=== PATIENT | male | born 1950 | race Caucasian/White ===

== ENCOUNTER 2018-04-08 22:45 | Emergency (ER) | payer BC ==
[2018-04-08] MEDS ORDERED: HYDROCODONE/APAP 10/325 TAB ONE (23:13)
--- NOTE | 2018-04-09 01:08 | EDPHYS ---
Physician Documentation [facility] Name: Tim Harris Age: 67 yrs Sex: Male : 1950 Arrival Date: 04/08/2018 Time: 22:46 Bed 30 Private MD: ED Physician Bernard Mendoza HPI: 04/08 23:15 This 67 yrs old Male presents to ER via Wheelchair with complaints of Leg Injury, Fall jmm Injury. 23:15 The patient presents with an injury. The complaints affect the lateral aspect of right jmm thigh. Onset: The symptoms/episode began/occurred acutely, just prior to arrival. Patient states he tripped on a log landing on the sand just prior to arrival complains of pain to the right thigh. Denies other injury. Historical: - Allergies: 22:58 No Known Allergies; fc - Home Meds: 22:58 atorvastatin oral oral 1 tab once daily [Active]; lisinopril Oral once daily [Active]; fc - PMHx: 22:58 Hyperlipidemia; Hypertension; fc - PSHx: 22:58 None; fc - Immunization history:: Last tetanus immunization: up to date. - Social history:: Smoking status: Patient uses tobacco products, smokes one pack cigarettes per day. Patient uses alcohol, QOD. - Ebola Screening: : Patient negative for fever greater than or equal to 101.5 degrees Fahrenheit, and additional compatible Ebola Virus Disease symptoms Patient denies exposure to infectious person Patient denies travel to an Ebola-affected area in the 21 days before illness onset. ROS: 23:15 Constitutional: Negative for fever, chills, and weight loss, Cardiovascular: Negative jmm for chest pain, palpitations, and edema, Respiratory: Negative for shortness of breath, cough, wheezing, and pleuritic chest pain, Abdomen/GI: Negative for abdominal pain, nausea, vomiting, diarrhea, and constipation, Back: Negative for injury and pain. 23:15 MS/extremity: Positive for pain. 23:15 All other systems are negative. Exam: 23:15 Constitutional: This is a well developed, well nourished patient who is awake, alert, jmm and in no acute distress. 23:15 Head/Face: atraumatic. 23:15 Cardiovascular: Rate: normal. 23:15 Respiratory: the patient does not display signs of respiratory distress, Respirations: normal. 23:15 Musculoskeletal/extremity: pain elicited on palpation of the right thigh, no obvious deforimty appreciated. 23:15 Skin: Appearance: Color: normal in color. 23:15 Neuro: Orientation: is normal, Mentation: is normal, Memory: is normal. Vital Signs: 22:59 BP 101 / 71; Pulse 67; Resp 18; Temp 97.4(O); Pulse Ox 95% on R/A; Weight 87.09 kg (R); fc Height 5 ft. 5 in. (165.10 cm) (R); Pain 07/10; 04/09 01:00 BP 126 / 72; Pulse 72; Resp 17; Pulse Ox 96% on R/A; rk2 04/08 22:59 Body Mass Index 31.95 (87.09 kg, 165.10 cm) fc MDM: 04/08 23:14 [facility] 04[facility] 01:03 Data reviewed: vital signs, nurses notes, radiologic studies, plain films. Counseling: [facility] I had a detailed discussion with the patient and/or guardian regarding: the historical points, exam findings, and any diagnostic results supporting the discharge/admit diagnosis, radiology results, the need for outpatient follow up, to return to the emergency department if symptoms worsen or persist or if there are any questions or concerns that arise at home. 04/08 23:14 Order name: [facility] Right XRAY [facility] 04/09 00:53 Order name: Crutches; Complete Time: 01:03 [facility] Administered Medications: 04/08 23:12 Drug: [place] 10 mg-325 mg 1 tabs Route: PO; rk2 04/09 01:04 Follow up: Response: No adverse reaction [facility] Disposition: 05:23 Co-signature as Attending Physician, Bernard Mendoza MD. rn Disposition: 04/09/18 01:07 Discharged to Home. Impression: Muscle strain. - Condition is Stable. - Discharge Instructions: Muscle Strain. - Prescriptions for Ultram 50 mg Oral Tablet - take 1 tablet by ORAL route every 6 hours As needed; 20 tablet. orphenadrine citrate 100 mg Oral Tablet Sustained Release - take 1 tablet by ORAL route 2 times per day As needed; 20 tablet. - Medication Reconciliation Form, Thank You Letter, Antibiotic Education, Prescription Opioid Use form. - Follow up: Dave Nunez MD; When: 2 - 3 days; Reason: Recheck today's complaints. Signatures: Dispatcher [employer] EDMaximino Hernandez PA PA jmm Chretien, Felicia RN RN Bernard Chan MD MD rn Kidder, Rhonda, RN RN rk2 Corrections: (The following items were deleted from the chart) 01:20 01:07 04/09/2018 01:07 Discharged to Home. Impression: Muscle strain. Condition is rk2 Stable. Forms are Medication Reconciliation Form, Thank You Letter, Antibiotic Education, Prescription Opioid Use. Follow up: Dave Nunez; When: 2 - 3 days; Reason: Recheck today's complaints. [email or web address]
--- NOTE | 2018-04-09 01:08 | ER ---
Nurse's Notes [facility] Name: Tim Harris Age: 67 yrs Sex: Male : 1950 Arrival Date: 04/08/2018 Time: 22:46 Bed 30 Private MD: Diagnosis: Muscle strain Presentation: 04/08 22:55 Presenting complaint: Patient states: [place] out of the bathroom and tripped over a log. Is having increased pain to right knee. Denies hitting head or any LOC. Transition of care: patient was not received from another setting of care. Onset of symptoms was April 08, 2018 at 17:30. Risk Assessment: Do you want to hurt yourself or someone else? Patient reports no desire to harm self or others. Initial Sepsis Screen: Does the patient meet any 2 criteria? No. Patient's initial sepsis screen is negative. Does the patient have a suspected source of infection? No. Patient's initial sepsis screen is negative. Care prior to arrival: None. 22:55 Method Of Arrival: Wheelchair 22:55 Acuity: GIL 4 Triage Assessment: 23:13 General: Appears uncomfortable, well developed, well nourished, Behavior is calm, rk2 cooperative. Pain: Complains of pain in right leg/knee. Neuro: Level of Consciousness is alert, obeys commands, Oriented to person, place, time, situation. Respiratory: Airway is patent Respiratory effort is even, unlabored, Respiratory pattern is regular, symmetrical. Derm: Skin is pink, warm \T\ dry. Musculoskeletal: Capillary refill < 3 seconds, distal pulse. Injury Description: No obvious deformity, painful on palpation. Historical: - Allergies: 22:58 No Known Allergies; - Home Meds: 22:58 atorvastatin oral oral 1 tab once daily [Active]; lisinopril Oral once daily [Active]; fc - PMHx: 22:58 Hyperlipidemia; Hypertension; - PSHx: 22:58 None; - Immunization history:: Last tetanus immunization: up to date. - Social history:: Smoking status: Patient uses tobacco products, smokes one pack cigarettes per day. Patient uses alcohol, QOD. - Ebola Screening: : Patient negative for fever greater than or equal to 101.5 degrees Fahrenheit, and additional compatible Ebola Virus Disease symptoms Patient denies exposure to infectious person Patient denies travel to an Ebola-affected area in the 21 days before illness onset. Screenin:13 Abuse screen: Denies threats or abuse. Nutritional screening: No deficits noted. rk2 Tuberculosis screening: No symptoms or risk factors identified. Fall Risk Gait- Impaired (20 pts.). Assessment: 04/09 00:03 Reassessment: Patient appears in no apparent distress at this time. No changes from rk2 previously documented assessment. Patient and/or family updated on plan of care and expected duration. Pain level reassessed. xray completed \T\ bedside. Still having left knee/leg pain . Vital Signs: 04/08 22:59 BP 101 / 71; Pulse 67; Resp 18; Temp 97.4(O); Pulse Ox 95% on R/A; Weight 87.09 kg (R); fc Height 5 ft. 5 in. (165.10 cm) (R); Pain 9/10; 04/09 01:00 BP 126 / 72; Pulse 72; Resp 17; Pulse Ox 96% on R/A; rk2 04/08 22:59 Body Mass Index 31.95 (87.09 kg, 165.10 cm) fc ED Course: 04/08 22:46 Patient arrived in ED. am2 22:56 Triage completed. fc 22:58 Arm band placed on Patient placed in an exam room, on a stretcher. fc 23:01 Nory Leigh, RN is Primary Nurse. rk2 23:08 Maximino Orellana PA is PHCP. jm 23:08 Bernard Mendoza MD is Attending Physician. [facility] 23:13 Patient has correct armband on for positive identification. Bed in low position. Call rk2 light in reach. 04/09 00:03 Femur Right XRAY Sent. rk2 00:22 X-ray completed. Portable x-ray completed in exam room. Patient tolerated procedure kw well. 00:43 Femur Right XRAY In Process Unspecified. EDMS 01:07 Dave Nunez MD is Referral Physician. [facility] 01:19 No provider procedures requiring assistance completed. IV discontinued. rk2 Administered Medications: 04/08 23:12 Drug: [place] 10 mg-325 mg 1 tabs Route: PO; rk2 04/09 01:04 Follow up: Response: No adverse reaction rk2 Outcome: 01:07 Discharge ordered by MD. vital 01:20 Discharged to home with crutches. rk2 01:20 Condition: improved 01:20 Discharge instructions given to patient, Prescriptions given X 2. 01:20 Patient left the ED. rk2 Signatures: Dispatcher [employer] EDMS Maximino Orellana PA PA jmm Chretien, Felicia, RN RN Letitia Avila Amanda [facility] Nory Leigh RN RN rk2
--- NOTE | 2018-04-09 10:27 | RAD REPORT ---
EXAM DESCRIPTION: RAD - Femur Right - 04/09/2018 12:45 am CLINICAL HISTORY: Right leg pain FINDINGS: No fracture is seen. No bony abnormality is displayed
== END 2018-04-09 01:20 | disposition home or self-care (01) ==
LOC: ER 22:45
DX: S76.911A Strain of unspecified muscles, fascia and tendons at thigh level, right thigh, initial encounter (principal); E78.5 Hyperlipidemia, unspecified; I10 Essential (primary) hypertension; F17.210 Nicotine dependence, cigarettes, uncomplicated; W18.40XA Slipping, tripping and stumbling without falling, unspecified, initial encounter; Y93.9 Activity, unspecified; Y92.9 Unspecified place or not applicable; Y99.9 Unspecified external cause status
CPT/HCPCS: 99283